=== PATIENT | female | born 2000 | race Two or more races ===

== ENCOUNTER 2024-08-28 17:13 | Emergency (ER) | payer SELFPAY | END 2024-08-28 17:19 | disposition left against medical advice (07) | LOC: JD.ED 17:13 | DX: Z53.21 Procedure and treatment not carried out due to patient leaving prior to being seen by health care provider (principal) ==

== ENCOUNTER 2024-09-11 15:01 | Emergency (ER) | payer SELFPAY ==
[2024-09-11] MEDS ORDERED: Sodium Chloride 0.9% 10 ML Syringe FLUSH PRN (15:41)
[2024-09-11 15:46] LABS: BASOPHILS ABSOLUTE AUTO 0.0 K/mm3 (0.0-0.2); BASOPHILS PERCENT AUTO 0.5 % (0.0-1.0); EOSINOPHILS ABSOLUTE AUTO 0.1 K/mm3 (0.0-0.4); EOSINOPHILS PERCENT AUTO 1.3 % (0.0-6.0); IMMATURE GRAN ABSOLUTE AUTO 0.04 K/mm3 (0.00-0.05); IMMATURE GRAN PERCENT AUTO 0.5 % (0.0-0.4); LYMPHOCYTES ABSOLUTE AUTO 2.2 K/mm3 (1.0-4.8); LYMPHOCYTES PERCENT AUTO 27.3 % (24.0-44.0); MEAN PLATELET VOLUME 10.6 fl (9.4-12.3); MONOCYTES ABSOLUTE AUTO 0.4 K/mm3 (0.0-0.8); MONOCYTES PERCENT AUTO 5.1 % (0.0-8.0); NEUTROPHILS ABSOLUTE AUTO 5.2 K/mm3 (1.8-7.7); NEUTROPHILS PERCENT AUTO 65.3 % (41.0-71.0); NRBC ABSOLUTE 0.00 (0.00-0.02); NRBC PERCENT 0.0 % (0.0-0.2); PLATELET COUNT,PLT 284 K/mm3 (150-400); RED BLOOD CELL COUNT 5.12 M/mm3 (4.10-5.30); WHITE BLOOD CELL COUNT,WBC 7.91 K/mm3 (3.9-11.3)
[2024-09-11 16:06] LABS: A/G RATIO 1.1 (1-2); ALANINE AMINOTRANSFERASE,ALT 27 U/L (14-59); ASPARTATE AMNIOTRANSFERASE,AST 19 U/L (15-37); BILIRUBIN TOTAL 0.3 mg/dL (0.2-1.0); BLOOD UREA NITROGEN,BUN 10 mg/dL (7-18); CARBON DIOXIDE,CO2 27 mEq/L (21-32); CHLORIDE,CL 106 mEq/L (98-107); CREATININE 0.7 mg/dL (0.55-1.02); EST CRCL DRUG DOSING (CG) 109.78 mL/min; ESTIMATED GFR 126 mL/min (>60); GLUCOSE RANDOM 79 mg/dL (70-99); POTASSIUM,K 3.7 mEq/L (3.5-5.1); PROTEIN TOTAL,TP 7.0 g/dl (6.4-8.2); SODIUM,NA 140 mEq/L (136-145)
[2024-09-11 16:08] LABS: TROPONIN I HIGH SENSITIVITY < 4 pg/mL (<=51)
[2024-09-11] MEDS: Iopamidol 612 MG/ML 100 ML Bottle IVPUSH ONE (16:46)
[2024-09-11] MEDS: Sodium Chloride 0.9% 10 ML Syringe FLUSH ONE (16:47)
== END 2024-09-11 17:30 | disposition home or self-care (01) ==
LOC: JD.ED 15:01
DX: R07.89 Other chest pain (principal); R60.0 Localized edema
CPT/HCPCS: 36415; 71045; 74177; 80053; 83880; 84484; 84703; 85025; 85379; 93005; 99285; Q9967; 93010; 99283

== ENCOUNTER 2024-12-03 20:22 | Emergency (ER) | payer SELFPAY ==
[2024-12-03] MEDS ORDERED: Sodium Chloride 0.9% 10 ML Syringe FLUSH PRN (20:48)
[2024-12-03 21:05] LABS: BASOPHILS ABSOLUTE AUTO 0.0 K/mm3 (0.0-0.2); BASOPHILS PERCENT AUTO 0.2 % (0.0-1.0); EOSINOPHILS ABSOLUTE AUTO 0.1 K/mm3 (0.0-0.4); EOSINOPHILS PERCENT AUTO 0.7 % (0.0-6.0); IMMATURE GRAN ABSOLUTE AUTO 0.07 K/mm3 (0.00-0.05); IMMATURE GRAN PERCENT AUTO 0.5 % (0.0-0.4); LYMPHOCYTES ABSOLUTE AUTO 2.1 K/mm3 (1.0-4.8); LYMPHOCYTES PERCENT AUTO 15.5 % (24.0-44.0); MEAN PLATELET VOLUME 10.2 fl (9.4-12.3); MONOCYTES ABSOLUTE AUTO 0.7 K/mm3 (0.0-0.8); MONOCYTES PERCENT AUTO 5.0 % (0.0-8.0); NEUTROPHILS ABSOLUTE AUTO 10.3 K/mm3 (1.8-7.7); NEUTROPHILS PERCENT AUTO 78.1 % (41.0-71.0); NRBC ABSOLUTE 0.00 (0.00-0.02); NRBC PERCENT 0.0 % (0.0-0.2); PLATELET COUNT,PLT 247 K/mm3 (150-400); RED BLOOD CELL COUNT 4.64 M/mm3 (4.10-5.30); WHITE BLOOD CELL COUNT,WBC 13.20 K/mm3 (3.9-11.3)
[2024-12-03 21:49] LABS: A/G RATIO 0.8 (1-2); ALANINE AMINOTRANSFERASE,ALT 24.0 U/L (14-59); ASPARTATE AMNIOTRANSFERASE,AST 15.0 U/L (15-37); BILIRUBIN TOTAL 0.2 mg/dL (0.2-1.0); BLOOD UREA NITROGEN,BUN 11.0 mg/dL (7-18); CARBON DIOXIDE,CO2 27.0 mEq/L (21-32); CHLORIDE,CL 106.0 mEq/L (98-107); CREATININE 0.7 mg/dL (0.55-1.02); EST CRCL DRUG DOSING (CG) 108.86 mL/min; ESTIMATED GFR 125.0 mL/min (>60); GLUCOSE RANDOM 81.0 mg/dL (70-99); POTASSIUM,K 3.5 mEq/L (3.5-5.1); PROTEIN TOTAL,TP 6.5 g/dl (6.4-8.2); SODIUM,NA 139.0 mEq/L (136-145)
[2024-12-03 21:54] LABS: HCG QUANTITATIVE 66135.0 mIU/mL
[2024-12-03 22:06] LABS: APPEARANCE,URINE CLEAR (Clear); GLUCOSE,URINE NEGATIVE (Negative); OCCULT BLOOD,URINE NEGATIVE (Negative)
[2024-12-03] MEDS: cefTRIAXone 1 GM in Water For Injection, Sterile 10 ML IVPUSH ONE (23:05)
[2024-12-03] MEDS: Ondansetron 4 MG/2 ML SDV IVPUSH ONE (23:13)
== END 2024-12-04 00:23 | disposition home or self-care (01) ==
LOC: JD.ED 20:22
DX: O23.42 Unspecified infection of urinary tract in pregnancy, second trimester (principal); N39.0 Urinary tract infection, site not specified; O99.112 Other diseases of the blood and blood-forming organs and certain disorders involving the immune mechanism complicating pregnancy, second trimester; D72.829 Elevated white blood cell count, unspecified; Z3A.14 14 weeks gestation of pregnancy; Z79.899 Other long term (current) drug therapy
CPT/HCPCS: 36415; 76805; 80053; 81001; 84702; 85025; 86900; 86901; 87086; 96374; 96375; 99284; J0696; J2405; J7030